=== PATIENT | female | born 1990 | race Caucasian/White ===

== ENCOUNTER → 2021-02-25 14:40 | Outpatient (CLI) | payer OTHER, SELFPAY ==
--- NOTE | 2021-02-25 14:44 | DI.US.S_ITS ---
PROCEDURE: US OB <= 14 WEEKS FETUS INDICATIONS: DATING OUTSIDE/PRIOR DATING DATA: Last menstrual period (LMP): December 28, 2020. LMP-based estimated date of delivery (HARDIK): October 04, 2021. First dating scan (date and location): [facility]; February 25, 2021. Estimated date of delivery (HARDIK) from first dating scan: October 04, 2021. TECHNIQUE: Real-time scanning was performed of the fetus and maternal pelvic organs, with image documentation. Endovaginal scanning was also performed to better visualize the fetus and maternal ovaries. COMPARISON: None. FINDINGS: Embryo: The crown-rump length measures 1.87 cm, compatible with an 8 week, 3 day gestation. A 2.9 x 1.7 x 0.8 cm hypoechoic area is seen adjacent to the gestational sac. Heart rate: 178 Measurement variability in dating: +/- 4 weeks by LMP, +/- 7 days by mean sac diameter (use before 6 weeks gestation if crown-rump length not able to be measured), +/- 5 days by crown-rump length (up to 8 weeks 6 days gestation), +/- 7 days by crown-rump length (up to 13 weeks 6 days gestation). Maternal organs: Ovaries demonstrated echogenic focus in the left ovary, which may reflect a corpus luteum . IMPRESSION: 1. Early single intrauterine gestation with perigestational hemorrhage as detailed above. Dictated by: Vinnie Roberts M.D. on 02/25/2021 at 16:10 Approved by: Vinnie Roberts M.D. on 02/25/2021 at 16:14
[2021-02-25 15:25] LABS: Add Manual Diff / Slide Review NO; Basophils Absolute Auto 100 /uL (0-100); Basophils Percent Auto 0.4 % (0-2); Eosinophils Absolute Auto 100 /uL (0-450); Eosinophils Percent Auto 0.5 % (2-4); Hematocrit 38.9 % (36-46); Hemoglobin 13.2 g/dL (12.0-16.0); Lymphocytes Absolute Auto 3700 /uL (1100-4500); Lymphocytes Percent Auto 30.5 % (25-40); Mean Corpuscular HGB Conc 33.9 % (30-36); Mean Corpuscular Hemoglobin 29.7 PG (26-34); Mean Corpuscular Volume 87.7 fL (80-100); Monocytes Absolute Auto 800 /uL (0-900); Monocytes Percent Auto 6.4 % (3-14); Neutrophils Absolute Auto 7500 /uL (1500-7000); Neutrophils Percent Auto 62.2 % (50-75); Platelet Count 209 X10^3/uL (150-400); Red Blood Cell Count 4.43 X10^6/uL (4.0-5.2); Red Cell Distribution Width 14.4 % (11.6-14.8); White Blood Cell Count 12.1 X10^3/uL (4.5-11.0)
[2021-02-25 15:37] LABS: Appearance Urine UA CLEAR; Bilirubin Urine UA NEGATIVE (NEGATIVE); Color Urine UA YELLOW; Glucose Urine UA NEGATIVE (Negative); Ketones Urine UA NEGATIVE (NEGATIVE); Leukocyte Esterase Urine UA NEGATIVE (NEGATIVE); Nitrite Urine UA NEGATIVE (Negative); Occult Blood Urine UA NEGATIVE (Negative); Protein Urine UA NEGATIVE (Negative); Urobilinogen Urine UA 0.2 E.U./dL (0.2)
[2021-02-25 16:01] LABS: pH Urine UA 6.5 (4.5-8.0)
[2021-02-25 17:19] LABS: Hepatitis B Surface Antigen NEGATIVE s/c (NEGATIVE)
[2021-02-25 17:37] LABS: HIV 1 & 2 Ab/Ag 4th Gen Combo NEGATIVE (NEGATIVE); Hep C Virus Ab w/Reflex Quant NEGATIVE s/c (NEGATIVE)
[2021-02-26 07:44] LABS: RPR Screen Non Reactive (Non Reactive); Varicella IgG Antibody <135 index (Immune >165)
== END ==
PROVIDERS: Referring Provider Obstetrics & Gynecology; Visit Provider Obstetrics & Gynecology
DX: O46.91 Antepartum hemorrhage, unspecified, first trimester (principal); Z3A.08 8 weeks gestation of pregnancy
CPT/HCPCS: 36415; 76801; 76817; 80055; 81003; 86787; 86803; 86850; 86900; 86901; 87086; 87389

== ENCOUNTER → 2021-04-26 10:18 | Outpatient (CLI) | payer OTHER, SELFPAY ==
[2021-04-26 14:22] LABS: Urine N gonorrhoeae NOT DETECTED
[2021-04-26 14:35] LABS: Urine Chlamydia NOT DETECTED
== END ==
PROVIDERS: Visit Provider Obstetrics & Gynecology
DX: Z34.02 Encounter for supervision of normal first pregnancy, second trimester (principal); Z3A.17 17 weeks gestation of pregnancy
CPT/HCPCS: 87491; 87591

== ENCOUNTER → 2021-04-26 10:55 | Outpatient (CLI) | payer OTHER, SELFPAY ==
[2021-04-29 21:01] LABS: AFP, Serum 48.8 ng/mL (.); Estriol, Free 1.49 ng/mL (.); Inhibin A, Dimeric 95.69 pg/mL (.); Inhibin A, MoM 0.59 (.); Maternal Ethnicity Caucasian (.); Maternal Weight 143 lbs (.); Number of Fetuses No (.); OSBR Risk 1 IN 5926 (.); Results Report (.); Test Results *Screen Negative* (.); hCG, MoM 0.78 (.); hCG, Serum 27478 mIU/mL (.)
== END ==
PROVIDERS: Referring Provider Obstetrics & Gynecology; Visit Provider Obstetrics & Gynecology
DX: Z34.02 Encounter for supervision of normal first pregnancy, second trimester (principal); Z3A.17 17 weeks gestation of pregnancy
CPT/HCPCS: 36415; 82105; 82677; 84702; 86336; 87491; 87591

== ENCOUNTER → 2021-05-17 09:47 | Outpatient (CLI) | payer OTHER, SELFPAY ==
--- NOTE | 2021-05-17 09:48 | DI.US.S_ITS ---
PROCEDURE: US OB >= 14 WEEKS FETUS INDICATIONS: 20 WEEK ANATOMY SCAN OUTSIDE/PRIOR DATING DATA: Last menstrual period (LMP): 12/28/2020 LMP-based estimated date of delivery (HARDIK): 10/04/2021. First dating scan (date and location): 02/25/2021. Estimated date of delivery (HARDIK) from first dating scan: 10/04/2021. The calculations are made using the ultrasound HARDIK of 10/04/2021. TECHNIQUE: Real-time scanning was performed of the fetus, with image documentation and biometric measurements. COMPARISON: [facility], , OB <= 14 WEEKS FETUS, 02/25/2021, 15:07. FINDINGS: General: A single living intrauterine gestation is present. Presentation: Vertex. Placenta: Placental position is anterior , without previa. Amniotic fluid index: 16 cm, normal range is 5-24 cm. Largest pocket 3.5 cm. heart rate: 158 beats per minute. Maternal cervical canal: 4.5 cm cm long. Normal lower limit is 2.5 cm. biometrics: Biparietal diameter: 4.6 cm, 19 weeks 6 days Head circumference: 17 cm, 19 weeks 4 days Abdominal circumference: 14.5 cm, 19 weeks 6 days Femur length: 3.1 cm, 19 weeks 4 days Clinically estimated gestational age: 20 weeks Composite gestational age from present scan: 19 weeks 5 days Estimated weight and percentile: 309 g; 30th percentile Anatomic survey: Neuro: Ventricles are non-dilated at less than 10 mm. Cisterna magna is normal at 3-11 mm. Cerebellum is normal in size and morphology. Nuchal skin fold: Normal at less than 6 mm between 14-21 weeks gestational age. Face: Nose and lips, facial profile are normal. Spine: No evidence for spina bifida. Heart: 4-chambered heart is present, with normal ventricular outflow tracts. Diaphragm: Diaphragm is intact. Stomach: Left-sided stomach is present. Kidneys: No hydronephrosis. Normal is less than 5 mm in 2nd trimester, less than 7 mm in 3rd trimester. Cord: 3-vessel cord has orthotopic insertion. Bladder: Normal in size. Extremities: All 4 extremities identified. IMPRESSION: 1. [place] living intrauterine at 19 weeks 5 days based on today's ultrasound. This is concordant with the prior ultrasound. There is expected interval growth. Fetus is in the 30th percentile for weight. 2. Normal placenta and amniotic fluid. 3. Normal and complete anatomic survey. We strive to produce accurate, complete, and clear reports of imaging services. To assist us in improving patient care, this report was composed using standard report templates and voice recognition software. Therefore, it may contain abnormal punctuation, insertions and/or omissions. Occasional wrong-word or sound-alike substitutions may occur. Though we review the report and make efforts to correct it, we do recommend that the report be read carefully in proper context to recognize any text inaccuracies. Dictated by: Killian CONLEY Interpreted: Jesus Sarah MD on 05/17/2021 at 10:58 Approved by: Jesus Sarah M.D. on 05/17/2021 at 11:33
== END ==
PROVIDERS: Referring Provider Obstetrics & Gynecology; Visit Provider Obstetrics & Gynecology
DX: Z34.02 Encounter for supervision of normal first pregnancy, second trimester (principal); Z3A.19 19 weeks gestation of pregnancy
CPT/HCPCS: 76811

== ENCOUNTER → 2021-07-19 16:35 | Outpatient (CLI) | payer OTHER, SELFPAY ==
[2021-07-19 17:53] LABS: Hematocrit 37.4 % (36-46); Hemoglobin 12.9 g/dL (12.0-16.0)
[2021-07-19 18:11] LABS: GTT (PREG) 1 Hour PP 50gm Dose 136 mg/dL (76-139)
== END ==
PROVIDERS: Referring Provider Obstetrics & Gynecology; Visit Provider Obstetrics & Gynecology
DX: Z34.02 Encounter for supervision of normal first pregnancy, second trimester (principal); Z3A.21 21 weeks gestation of pregnancy
CPT/HCPCS: 36415; 82950; 85014; 85018

== ENCOUNTER → 2021-09-13 17:28 | Outpatient (CLI) | payer OTHER, SELFPAY ==
[2021-09-14 15:23] LABS: Strep Grp B PCR POS for Grp B Strep
== END ==
PROVIDERS: Visit Provider Obstetrics & Gynecology
DX: Z34.03 Encounter for supervision of normal first pregnancy, third trimester (principal); Z3A.37 37 weeks gestation of pregnancy
CPT/HCPCS: 87653

== ENCOUNTER 2021-10-08 10:09 | Outpatient (CLI) | payer OTHER, SELFPAY ==
--- NOTE | 2021-10-08 11:23 | P.TNLD_ITS ---
Visit Information Visit Information Date of evaluation: 10/08/21 Primary OB Provider: Delonte Michele Reason for Evaluation: Yes non-stress test Comments/Additional reasons for admission: Post-dates, 40+4 weeks EGA [facility] Medical History (Updated 10/06/21 @ 08:24 by Delonte Michele MD) Bilateral low back pain with left-sided sciatica COVID-19 (~12/25/20) Fracture of left knee region (~2012) Lumbar region somatic dysfunction Pelvic somatic dysfunction Sacral region somatic dysfunction Segmental and somatic dysfunction of abdomen and other regions Surgical History (Updated 02/27/21 @ 15:13 by Kamryn Astudillo RN) History of removal of skin mole (~2014) [place] teeth extracted (~10/2020) Family History (Updated 02/27/21 @ 15:18 by Kamryn Astudillo RN) Mother No problems noted. Father No problems noted. Grandmother Hypertension Grandfather Hyperlipidemia History of quadruple bypass Grandmother Family history unknown Grandfather Family history unknown Social History marital status: number of children: 0 household members: spouse lives independently: Yes caregiver/support person: No housing: condominium pets and animals: No education level: college occupational status: employed current occupational exposures/hazards: No parvin/oriental orthodox: Sikh special parvin needs: No seatbelt use: always do you feel safe at home: Yes Smoking Status: Former smoker second hand exposure: No alcohol intake: never substance use type: does not use during the past year weight has: remained stable well-balanced diet: daily or most days daily servings fruits/ve-4 caffeine: Yes (1 cup daily. ) Type(s) of exercise: walking and normal ROM and activity frequency: 3-4 times per week duration: 30-45 minutes/day Evaluation Evaluation Baseline heart rate: 135 Variability: Average (6-10) monitor accelerations: Present Monitor Decelerations: Absent Contraction Frequency (minutes): 4 Uterine Contraction Intensity: Mild Category of Tracing: Reactive Status: Category l station: -3 (OOP by Alan's maneuver) Diagnosis, Plan/Disposition Final Diagnosis (1) Post-dates : Status: Acute (2) GBS (group B Streptococcus carrier), +RV culture, currently : Status: Acute (3) : Status: Acute Plan/Disposition Plan: Will continue twice weekly testing with NST and her next MICAELA appointment is currently scheduled for 10/11/2021. Induction tentatively scheduled for the evening of 10/16/2021 with plans for cervical ripening at that time and initiation of Pitocin augmentation on the morning of 10/17/2021. Labor precautions reviewed. OB Disposition: home
== END 2021-10-08 11:24 | disposition home or self-care (01) ==
LOC: LABOR 11:24 → OB 10-09 14:28
PROVIDERS: Referring Provider Obstetrics & Gynecology; Visit Provider Obstetrics & Gynecology
DX: O48.0 Post-term pregnancy (principal); Z3A.40 40 weeks gestation of pregnancy; O99.820 Streptococcus B carrier state complicating pregnancy
CPT/HCPCS: 59025; G0378; G0379

== ENCOUNTER 2021-10-15 07:47 | Inpatient (IN) | payer OTHER, SELFPAY ==
--- NOTE | 2021-10-15 08:40 | P.HPOB_ITS ---
OB HPI Date/Time Date of admission: 10/15/21 Date Patient Seen: 10/15/21 Time Patient Seen: 08:40 History of Present Condition Chief complaint: LABOR : 1 Para: 0 Estimated Date of Delivery: 10/04/21 Estimated Gestational Age (weeks): 41+4 Narrative: Mana Patiño is a 31 year old HARDIK 10/04/2021 admitted now at 41+4 weeks EGA w/ SROM at 2300 last evening. PNC generally uncomplicated w/ her most recent EFW 2 weeks ago 8#5oz by US. GBS is positive. History of Present care: good care Dating criteria: LMP confirmed by 1st trimester US Ultrasounds: normal 1st trimester US and normal mid trimester US Obstetrical complications: none Medical complications: none Preadmission Labs Blood type: A (+) positive -: Antibody screen: negative, GBS status: positive, HBsAG: negative, HIV: negative and RPR/VDLR: negative -: Chlamydia screen: not detected and Gonorrhea screen: not detected -: Rubella: not immune and Varicella: not immune HCT: 39.6 HCAB: negative PAP: Normal Quad screen: Normal 1 hr GTT: 136 Prior (ies) History: Primigravida Evaluation Evaluation Baseline heart rate: 135 Variability: Average (6-10) monitor accelerations: Present Monitor Decelerations: Episodic and Variable (Mild occasional variables) Contraction Frequency (minutes): 4 Uterine Contraction Intensity: Moderate Category of Tracing: Reactive Status: Category l Dilation (cm): 2 Effacement (%): 75 Dilation: 1-2 cm Effacement: 60-70% station: -2 Position of cervix: mid Consistency: medium Yepez score: 6 Non-invasive Membranes Rupture Test: positive [facility] Medical History (Updated 10/06/21 @ 08:24 by Delonte Michele MD) Bilateral low back pain with left-sided sciatica COVID-19 (~12/25/20) Fracture of left knee region (~2012) Lumbar region somatic dysfunction Pelvic somatic dysfunction Sacral region somatic dysfunction Segmental and somatic dysfunction of abdomen and other regions Surgical History (Updated 02/27/21 @ 15:13 by Kamryn Astudillo RN) History of removal of skin mole (~2014) [place] teeth extracted (~10/2020) Family History (Updated 02/27/21 @ 15:18 by Kamryn Astudillo RN) Mother No problems noted. Father No problems noted. Grandmother Hypertension Grandfather Hyperlipidemia History of quadruple bypass Grandmother Family history unknown Grandfather Family history unknown Social History marital status: number of children: 0 household members: spouse lives independently: Yes caregiver/support person: No housing: condominium pets and animals: No education level: college occupational status: employed current occupational exposures/hazards: No parvin/mormonism: Rastafarian special parvin needs: No seatbelt use: always do you feel safe at home: Yes Smoking Status: Never smoker second hand exposure: No alcohol intake: never substance use type: does not use during the past year weight has: remained stable well-balanced diet: daily or most days daily servings fruits/ve-4 caffeine: Yes (1 cup daily. ) Type(s) of exercise: walking and normal ROM and activity frequency: 3-4 times per week duration: 30-45 minutes/day Meds Home Medications and Allergies Home Medications Medication Instructions Recorded Confirmed Type prenat.vits,caron,[id number] 1 tab PO DAILY 02/27/21 10/15/21 History Allergies Allergy/AdvReac Type Severity Reaction Status Date / Time No Known Drug Allergies Allergy Verified 09/13/21 15:48 Review of Systems Review of Systems Narrative: Problem-specific ROS positives included in HPI OB Exam HENMT Head: normal to inspection, normocephalic and atraumatic Eyes General: appearance normal, both eyes and all related structures Resp Effort & Inspection: normal respiratory effort and able to speak in complete sentences Auscultation: clear to auscultation bilaterally Cardio Rate: regular rate Rhythm: regular rhythm Heart Sounds: S1 normal, S2 normal and no murmurs Extremities Lower extremity: Yes normal to inspection GI Inspection: normal to inspection Palpation: Yes soft and Yes no hepatosplenomegaly Uterus Location (Fundal Height): 39 Presentation: vertex Estimated Weight (lbs): 9 Amniotic Fluid: clear Objective Labs Result Diagrams: 10/15/21 08:45 Assessment and Plan Assessment and Plan Assessment and Plan narrative: ASSESSMENT 1. Intrauterine gestation, 41+4 weeks EGA 2. SROM 2300 10/14/2021 3. + GBS carrier PLAN 1. Admit for delivery 2. GBS AB prophylaxis w/ PCN 3. Augment labor as needed 4. OK for JONNA 5. Anticipate but infant is LGA and high at presentation therefore observe carefully for dystocia 6. See orders
[2021-10-15] MEDS: LACTATED RINGERS 1,000 ML 100 ML IV ×4 (09:04→18:18)
[2021-10-15] MEDS: PENICILLIN G POTASSIUM 5,000,000 UNIT in DEXTROSE 5% IN WATER 250 ML 250 UNIT IV (09:04)
[2021-10-15 09:06] LABS: Add Manual Diff / Slide Review NO; Basophils Absolute Auto 100 /uL (0-100); Basophils Percent Auto 0.6 % (0-2); Eosinophils Absolute Auto 0 /uL (0-450); Eosinophils Percent Auto 0.1 % (2-4); Hematocrit 39.6 % (36-46); Hemoglobin 13.7 g/dL (12.0-16.0); Lymphocytes Absolute Auto 2100 /uL (1100-4500); Lymphocytes Percent Auto 11.2 % (25-40); Mean Corpuscular HGB Conc 34.6 % (30-36); Mean Corpuscular Hemoglobin 32.7 PG (26-34); Mean Corpuscular Volume 94.4 fL (80-100); Monocytes Absolute Auto 1000 /uL (0-900); Monocytes Percent Auto 5.5 % (3-14); Neutrophils Absolute Auto 15500 /uL (1500-7000); Neutrophils Percent Auto 82.6 % (50-75); Platelet Count 157 X10^3/uL (150-400); White Blood Cell Count 18.8 X10^3/uL (4.5-11.0)
[2021-10-15] MEDS: FENT 2MCG/ML BUPIV 0.125% EPI 200 MCG/100 ML PLAST..BAG 8 MCG EPIDURAL (09:16)
[2021-10-15 09:44] LABS: COVID19 -Nasal RAPID Negative (Negative)
[2021-10-15] MEDS: OXYTOCIN PREMIX 30 UNIT/500 ML PLAST..BAG IV (10:51)
[2021-10-15] MEDS: PENICILLIN G POTASSIUM 3,000,000 UNIT/50 ML FROZ.PIGGY 100 UNIT IV ×2 (12:49→16:46)
--- NOTE | 2021-10-15 17:17 | PM.OBPNLAB ---
Date/Time Date Patient Seen: 10/15/21 Time Patient Seen: 17:18 Pain Control Pain control: tolerating well Pelvic Exam Dilation (cm): 5 Effacement (%): 75 station: -2 Amniotic membrane status: Ruptured Contractions Contractions on admission: irregular Monitor mode: External Pitocin rate (mU/min): 2 Contraction frequency (min): 3 Contraction pattern: Regular Contraction phase: Resting Contraction intensity: Moderate Status status: Category l Heart Rate Baseline: 145 Monitor Accelerations: Present Monitor Decelerations: Early and Episodic Monitor Variability: Minimal Comments: + caput, + cervical edema, position indeterminate, + acceleration w/ scalp stimulation Assessment and Plan Assessment: induction ongoing Plan: continuous present management Comments: Patient hasn't made any significant change in dilation or descent over the past 3 hours. Pitocin off briefly earlier this afternoon due to a 5 minute bradycardia down to mid-80's associated with tachysystole. Will re-evaluate cervical exam in another two hours and if no change insert IUPC to R/O hypotonic uterine dysfunction. Patient aware of plan and potential causes of slow progress/dystocia.
--- NOTE | 2021-10-15 19:18 | PM.OBPNLAB ---
Date/Time Date Patient Seen: 10/15/21 Time Patient Seen: 19:18 Pain Control Pain control: tolerating well and epidural Pelvic Exam Dilation (cm): 5 Effacement (%): 75 station: -2 Amniotic membrane status: Ruptured Contractions Monitor mode: Internal (Inseted 190) Pitocin rate (mU/min): 0 Contraction frequency (min): 3 Contraction pattern: Regular Contraction phase: Resting Contraction intensity: Moderate Status status: Category l Heart Rate Baseline: 145 Monitor Accelerations: Present Monitor Decelerations: Episodic Monitor Variability: Moderate Comments: 5 minute decel from 145 down to 85 resolved w/ position change, O2, fluid bolus. Cervix remains unchanged. IUPC inserted to assess MVU. Bedside US, is OT. Assessment and Plan Assessment: induction ongoing Plan: continuous present management Comments: Will assess uterine contraction activity and recheck at 2030 to assess progress.
--- NOTE | 2021-10-15 20:41 | PM.OBPNLAB ---
Date/Time Date Patient Seen: 10/15/21 Time Patient Seen: 20:41 Pain Control Pain control: tolerating well Pelvic Exam Dilation (cm): 5 Effacement (%): 80 station: -1 Amniotic membrane status: Ruptured Contractions Contractions on admission: irregular Monitor mode: Internal (Inseted 190) Pitocin rate (mU/min): 0 Contraction frequency (min): 3 Contraction duration (min): 1 Contraction pattern: Regular Contraction phase: Resting Contraction intensity: Moderate Intrauterine tone measurement: 165 (MVU) Status status: Category l Heart Rate Baseline: 150 Monitor Accelerations: Present Monitor Decelerations: Episodic Monitor Variability: Moderate Assessment and Plan Plan: Comments: Discussed the fact that she hasn't progressed insofar as dilation and/or descent for at least 6 hours beyond current exam of 5 cm/80-%/-1-2 despite adequate uterine contraction activity limited by episodes of bradycardia requiring temporary discontinuation of Pitocin with Mana and Fabio. After a discussion of alternatives with attendant risks, benefits, and potential complications, they've opted to proceed with primary section due to failure to progress due to CPD. With full knowledge of the above, a written consent was executed, signed, and witnessed this date.
--- NOTE | 2021-10-15 20:54 | PM.PREOP ---
Pre-operative Note COVID-19 COVID-19 status: Negative Result date/Date tested (Pos, Neg/Pending): 10/15/21 Criteria for continued procedure: Non-surgical alternatives not available or appropriate per current SOC Interval Note History & Physical reviewed/Exam performed by Physician: Yes Changes to H&P: No
[2021-10-15] MEDS: CITRIC ACID/SODIUM CITRATE 15 ML SOLUTION 30 ML PO (21:26)
--- NOTE | 2021-10-15 21:30 | P.OP_ITS ---
Operative Date/Time/Diagnoses Date of procedure: 10/15/21 Time of procedure: 21:50 Pre-op diagnosis: Failure to progress due to cephalopelvic dysproportion (CPD) Post-op diagnosis: same Procedure & Clinicians Procedure: Primary cesrean Section (Low transverse cervical) Same procedure as scheduled: Yes Indications: Mana is a 31 yo at 41+4 weeks EGA admitted early on the morning of 10/15/2021 with contractions following SROM @ 2300 on the evening of 10/14/2021. She received an epidural and progressed well to 80%/5/-1-2 where she has rem ained for > 6 hrs. despite adequate contractions documented by IUPC. After consideration of all options patient and her spouse have decided to proceed with primary section for failiure to progress due to CPD. Surgeon: Delonte Michele Greeter Guest Services: Nelia Shepherd Reason for Greeter Guest Services: Retraction and the safe, effective, and timely performance of this complex surgical procedure. Anesthesia Type: Epidural Operative Notes Findings: Viable male BW 3663 gms (8# 1.2 oz), Apgars 9/9, delivered from the vertex presentation with marked caput and moulding. Normal gravid anatomy. Closure Type: primary Specimen(s): cord blood Intraoperative meds administered: Acetaminophen, Duramorph, Ketorolac and Pitocin Applied: Catheter Estimated Blood Loss (mL): 650 Blood products transfused: none Procedure in detail: With her informed written consent, the patient was taken to the operating room and placed in the supine position for a primary section procedure, for the indication(s) above. The abdomen was prepped and draped in the usual manner for section and a pre-surgical timeout was taken per [facility] OR protocol. Once effective anesthesia was confirmed, a 15 cm transverse Pf annenstiel incision was made in the skin and taken down through the subcutaneous tissues to the deep fascia. The deep fascia was incised transversely, the rectus abdominal eyes bluntly and sharply, and the peritoneal cavity entered without difficulty. The lower uterine segment was visualized and the position/presentation palpated. A transverse incision at or above the vesicouterine reflection was made with Metzenbaum scissors and transverse hysterotomy performed near the midline. Amniotomy revealed clear fluid. The incision was extended bilaterally with digital traction and the infant was delivered without difficulty from the vertex presentation. The infant was vigorous and cord clamping delayed for 60 seconds. The placenta was delivered intact using gentle cord traction and fundal massage.The uterine cavity was then cleared of any clot/debris first with a sloppy wet lap tape followed by a dry lap tape. Ring forceps were then applied to the angles and the midline of the incised BOZENA. A primary closure of the uterus was then accomplished with #1 CCGS in a running interlocking stitch followed by a 2nd layer of #1 CCGS in a running interlocking imbricating stitch. One additional figure of eight suture was required to achieve complete hemostasis. An ascending uterine artery suture was required on the left side to render the angle hemostatic. Once pelvic hemosta sis was assured, the anterior peritoneum was closed with a running 2-0 Vicryl suture and the fascia closed with #1 Vicryl in a running stitch initiated at both angles and tying separately near the midline. The subcutaneous tissues were reapproximated with 2-0 plain catgut suture using inverted interrupted stitches. The skin edges were then brought together with 4-0 Monocryl in a subcuticular closure and the incision was reinforced with half-inch Steri- Strips. An appropriate compression dressing was applied and the patient transferred to PACU for recovery and subsequent transfer to the Center for recuperation. Complications: none [place] Baby 1: Infant Gender: Male Presentation: vertex Position: Left Occiput Transverse Placental Delivery Description: Spontaneous and Expressed Cord Vessel Description: 3 Vessels score (1 min): 9 score (5 min): 9 weight: 8 lb 1.209 oz Post-operative Condition: stable Disposition: PACU Aftercare: routine postop
[2021-10-15] MEDS: CEFAZOLIN 2 GM/20 ML SYRINGE IV (21:32)
[2021-10-15] MEDS: AZITHROMYCIN 500 MG in DEXTROSE 5% IN WATER 250 ML 250 MG IV (21:35)
--- NOTE | 2021-10-15 21:51 | SUR.OPER ---
Supine on Padded OR bed, head on pillow, safety belt at thigh, arms secured on padded arm boards at <90 degrees abduction. Bump under right buttock. Legs uncrossed with pillow under knees, gel pad to heels, tape over blanket to lower legs.
--- NOTE | 2021-10-15 22:09 | SUR.OPER ---
viable baby boy born at 2158, placenta delivered at 2201, cord blood and placenta given to OB RN, at 9/9
[2021-10-15 22:57] VITALS: BP 102/62; PULSE 83; RESP 15; O2SAT 99
[2021-10-16] MEDS: LACTATED RINGERS 1,000 ML 100 ML IV (00:34)
[2021-10-16] MEDS: KETOROLAC 30 MG/ML VIAL IV (04:42)
[2021-10-16 05:10] LABS: Add Manual Diff / Slide Review NO; Basophils Absolute Auto 0 /uL (0-100); Basophils Percent Auto 0.1 % (0-2); Eosinophils Absolute Auto 0 /uL (0-450); Hematocrit 33.1 % (36-46); Hemoglobin 11.6 g/dL (12.0-16.0); Lymphocytes Absolute Auto 1500 /uL (1100-4500); Lymphocytes Percent Auto 6.4 % (25-40); Mean Corpuscular Hemoglobin 33.2 PG (26-34); Mean Corpuscular Volume 94.7 fL (80-100); Monocytes Absolute Auto 1400 /uL (0-900); Monocytes Percent Auto 5.9 % (3-14); Neutrophils Absolute Auto 20600 /uL (1500-7000); Neutrophils Percent Auto 87.6 % (50-75); Platelet Count 138 X10^3/uL (150-400); Red Blood Cell Count 3.49 X10^6/uL (4.0-5.2); Red Cell Distribution Width 13.8 % (11.6-14.8); White Blood Cell Count 23.5 X10^3/uL (4.5-11.0)
--- NOTE | 2021-10-16 07:36 | PM.OBPN.1 ---
Subjective - OB Subjective Patient comments: no complaints [place] baby status: doing well [place] feeding status: exclusively breast feeding Narrative: POD#1: Patient doing well overnight. Patient has started passing gas. Limited ambulation thus far. Pain well controlled and lochia minimal. Denies nausea and vomiting Date Patient Seen: 10/16/21 Time Patient Seen: 07:36 Exam Vital Signs (past 8 hours): Oxygen Delivery Method Room Air Narrative Exam Narrative: Temp = 98.8 Const General: cooperative and comfortable Nutritional Appearance: average body habitus Orientation: alert and oriented x3 HENMT Head: normal to inspection, atraumatic and abrasion Ears: hearing grossly normal bilaterally Face and sinus: face symmetric Eyes General: appearance normal, both eyes and all related structures Conjunctivae: conjunctivae normal Sclera: sclerae normal EOM: EOM intact bilaterally Neck Neck: normal visual inspection Resp Effort & Inspection: normal respiratory effort and able to speak in complete sentences Auscultation: clear to auscultation bilaterally Cardio Rate: regular rate Rhythm: regular rhythm Heart Sounds: S1 normal, S2 normal and no murmurs GI Inspection: normal to inspection and incision (Surgical dressing clean and dry) Palpation: soft, no hepatosplenomegaly and tender (Mild, diffuse postsurgical tenderness) Auscultation: hypoactive bowel sounds External Female Exam: other (No significant bleeding noted) Extrem General: no calf tenderness Psych Appearance: grossly normal Mental Status: mental status grossly normal Speech and Movement: speech and movement normal Mood: congruent mood Affect: normal affect Attitude: cooperative Thought Process: normal Thought Content: normal Judgment: judgment good Objective Labs Result Diagrams: 10/16/21 04:47 Labs: Laboratory Results - last 24 hr 10/15/21 10/15/21 10/15/21 08:45 08:45 08:45 WBC 18.8 H RBC 4.20 Hgb 13.7 Hct 39.6 MCV 94.4 MCH 32.7 MCHC 34.6 RDW 14.0 Plt Count 157 Neut % (Auto) 82.6 H Lymph % (Auto) 11.2 L [place] % (Auto) 5.5 Eos % (Auto) 0.1 L Baso % (Auto) 0.6 Neut # (Auto) 87810 H Lymph # (Auto) 2100 [place] # (Auto) 1000 H Eos # (Auto) 0 Baso # (Auto) 100 SARS-CoV-2 (PCR) Negative Blood Type A Positive Antibody Screen Negative 10/16/21 04:47 WBC 23.5 H RBC 3.49 L Hgb 11.6 L Hct 33.1 L MCV 94.7 MCH 33.2 MCHC 35.0 RDW 13.8 Plt Count 138 L Neut % (Auto) 87.6 H Lymph % (Auto) 6.4 L [place] % (Auto) 5.9 Eos % (Auto) 0.0 L Baso % (Auto) 0.1 Neut # (Auto) 60485 H Lymph # (Auto) 1500 [place] # (Auto) 1400 H Eos # (Auto) 0 Baso # (Auto) 0 SARS-CoV-2 (PCR) Blood Type Antibody Screen Assessment & Plan Plan day: 1 plan OB: routine postop care Comments: Anticipate probable discharge in a.m. Time Spent With Patient Time: Total time spent is greater than 50% in coordination of care (as documented) at patient's floor/unit and/or counseling patient: Time with patient: 15-24 minutes
[2021-10-16 07:39] VITALS: BP 100/67; PULSE 78; RESP 16; TEMP 36.4
[2021-10-16] MEDS: ACETAMINOPHEN 325 MG TABLET 650 MG PO ×3 (07:44→22:02)
[2021-10-16] MEDS: LANOLIN OINT 7 GM 1 APPLIC TOP (07:46)
[2021-10-16 07:48] VITALS: BP 101/63
[2021-10-16] MEDS: DOCUSATE 100 MG CAPSULE 200 MG PO (10:28)
[2021-10-16] MEDS: IBUPROFEN 600 MG TABLET PO ×3 (10:28→22:03)
[2021-10-17] MEDS: ACETAMINOPHEN 325 MG TABLET 650 MG PO ×2 (05:27→11:32)
[2021-10-17] MEDS: IBUPROFEN 600 MG TABLET PO ×2 (05:27→11:31)
[2021-10-17 06:11] LABS: Add Manual Diff / Slide Review NO; Basophils Absolute Auto 0 /uL (0-100); Basophils Percent Auto 0.3 % (0-2); Eosinophils Absolute Auto 100 /uL (0-450); Eosinophils Percent Auto 0.6 % (2-4); Hematocrit 31.5 % (36-46); Hemoglobin 10.8 g/dL (12.0-16.0); Lymphocytes Absolute Auto 2800 /uL (1100-4500); Lymphocytes Percent Auto 19.2 % (25-40); Mean Corpuscular HGB Conc 34.4 % (30-36); Mean Corpuscular Hemoglobin 32.8 PG (26-34); Mean Corpuscular Volume 95.3 fL (80-100); Monocytes Absolute Auto 800 /uL (0-900); Monocytes Percent Auto 5.7 % (3-14); Neutrophils Absolute Auto 11000 /uL (1500-7000); Neutrophils Percent Auto 74.2 % (50-75); Platelet Count 122 X10^3/uL (150-400); White Blood Cell Count 14.8 X10^3/uL (4.5-11.0)
--- NOTE | 2021-10-17 08:31 | P.DS_ITS ---
Discharge Providers Provider Date of admission: 10/15/21 07:47 Discharge Date: 10/17/21 Primary care physician: Doctor Sharif MD Consults: 10/15/21 08:39 Consult to Anesthesiology Urgent Comment: Consulting Provider: Delonte Michele Reason for consultation: JONNA placement in labor Has provider been notified: No 10/15/21 23:01 Consult to Swim Instructor Routine Comment: Discharge provider: Delonte Michele MD Summary Hospital Course Date Patient Seen: 10/17/21 Time Patient Seen: 08:32 Diagnoses: Intrauterine gestation, [place], 40 1+4 weeks gestational age, delivered Failure to progress due to cephalopelvic disproportion GBS positive status, Hospital Course: Mana was admitted on the morning of 10/15/2021 with contractions after having experienced SROM at 11:00 p.m. on the evening of 10/14/2021. She received IV penicillin for GBS prophylaxis and was augmented with Pitocin progressing to 5 cm dilation late on the morning of 10/15/2021. Despite augmentation throughout the day, the patient did not progress beyond 5 cm dilation with the cervix 80- 90% effaced and the vertex never descending below -1-2 station. After more than 6 hours for without cervical change despite adequate contractions documented with IUPC, patient on the evening of 10/15/2021 underwent a primary section by low transverse cervical incision. Details of the procedure well summarized on my operative note of that date. Following surgery the patient has done extremely well with prompt return of bowel and bladder function, she is ambulating and dependently, tolerating a regular diet, and her pain is well controlled with oral pain medications. She will be discharged at this time to home in an afebrile normotensive condition after counseling regarding precautionary symptoms, limitations of activity, medications, and plans for follow-up. Her postop visit will be scheduled for 1 week following delivery at which time she will have an incision check and removal of her AquaCel dressing. Medications at discharge will include vitamins 1 p.o. daily, ibuprofen 600 mg p.o. q.6 hours as needed pain dispense 60 with 2 refills, and docusate 200 mg p.o. q.d. dispense 30 with 2 refills. Patient is undecided at this point regarding contraception but that will be discussed at her 1 week postop checkup. Peripartum Data Delivery Method: Section Laceration Description: None Episiotomy description: None complications: none 1: Gender: Male Disposition of : home Status at Discharge Cognitive/behavioral status at discharge: oriented Functional status at discharge: independent ambulation Overall status at discharge: patient is progressing back to baseline Time Spent with Patient Time attestation: Total time spent providing and/or coordinating discharge services: Time spent: Less than 30 minutes Objective Labs Result Diagrams: 10/17/21 05:43 Labs: Laboratory Results - last 24 hr 10/17/21 05:43 WBC 14.8 H RBC 3.30 L Hgb 10.8 L Hct 31.5 L MCV 95.3 MCH 32.8 MCHC 34.4 RDW 14.0 Plt Count 122 L Neut % (Auto) 74.2 Lymph % (Auto) 19.2 L [place] % (Auto) 5.7 Eos % (Auto) 0.6 L Baso % (Auto) 0.3 Neut # (Auto) 61144 H Lymph # (Auto) 2800 [place] # (Auto) 800 Eos # (Auto) 100 Baso # (Auto) 0 Exam Vital Signs (past 8 hours): Oxygen Delivery Method Room Air Const General: cooperative and comfortable Nutritional Appearance: average body habitus Orientation: alert and oriented x3 HENMT Head: normal to inspection, atraumatic and abrasion Ears: hearing grossly normal bilaterally Face and sinus: face symmetric Eyes General: appearance normal, both eyes and all related structures Conjunctivae: conjunctivae normal Sclera: sclerae normal EOM: EOM intact bilaterally Neck Neck: normal visual inspection Resp Effort & Inspection: normal respiratory effort and able to speak in complete sentences Auscultation: clear to auscultation bilaterally Cardio Rate: regular rate Rhythm: regular rhythm Heart Sounds: S1 normal, S2 normal and no murmurs GI Inspection: normal to inspection and incision (Surgical dressing clean and dry) Palpation: soft, no hepatosplenomegaly, mass (Firm, minimally tender fundus, U - 6) and tender (Mild, diffuse postsurgical tenderness) External Female Exam: other (Minimal/moderate lochia) Extrem General: no calf tenderness Psych Appearance: grossly normal Mental Status: mental status grossly normal Speech and Movement: speech and movement normal Mood: congruent mood Affect: normal affect Attitude: cooperative Thought Process: normal Thought Content: normal Judgment: judgment good Discharge Plan Discharge Plan Patient Disposition: Home Provider Discharge Comment: Please review the written instructions he received when you were discharged from the hospital. Your follow-up appointment will be scheduled for 1 week after your delivery and I look forward to seeing you then. If in the meanwhile however you have any issues, concerns, or problems, please contact me either through the office phone at [phone] or via the patient portal. Discharge orders & Medications Prescriptions: New ibuprofen 600 mg Tablet 600 mg PO Q6HR PRN (Reason: Fever/Mild Pain (1-3)) Qty: 60 2RF docusate sodium 100 mg Capsule 200 mg PO DAILY 30 Days Qty: 30 1RF Continued prenat.vits,caron,gor-ortb-aitrh Tablet 1 tab PO DAILY Follow up/Referrals: Doctor Olguin MD [Primary Care Provider] - (Appontment with on Thursday,October at 2:45 pm for aquacel removal and November at 10:30 am for 6 week appointment.) Discharge Health Status Multidrug resistant organism: No MDRO Diet/Activity/Treatments Diet: Diet as Tolerated Activity: As tolerated Other treatments: [id number] Tylenol or ibuprofen for mild discomfort Skin/Wound/Dressing Care Report to your healthcare provider any signs of infection, such as:: chills, fever, increased pain, unusual drainage and unusual redness Dressing: Dressing will be removed at your 1 week postop checkup Visit Report/Discharge Packet Instructions: Diet, DI for Stand Alone Forms: Discharge: Care Discharge Data Primary Care Provider: Doctor Sharif
[2021-10-17] MEDS: DOCUSATE 100 MG CAPSULE 200 MG PO (11:31)
[2021-10-17] MEDS: MEASLES,MUMPS,RUBELLA VACC/PF 0.5 ML VIAL SUBCUT (11:32)
== END 2021-10-17 14:24 | disposition home or self-care (01) | DRG 788 ==
PROVIDERS: Admitting Provider Obstetrics & Gynecology; Referring Provider Obstetrics & Gynecology; Visit Provider Obstetrics & Gynecology
PROC: 10D00Z1 Extraction of Products of Conception, Low, Open Approach (ICD-10-PCS; CPT 59514; principal; 2021-10-15 21:45)
DX: O42.02 Full-term premature rupture of membranes, onset of labor within 24 hours of rupture (principal); O65.4 Obstructed labor due to fetopelvic disproportion, unspecified; Z3A.41 41 weeks gestation of pregnancy; Z37.0 Single live birth; O48.0 Post-term pregnancy; O99.824 Streptococcus B carrier state complicating childbirth; O76 Abnormality in fetal heart rate and rhythm complicating labor and delivery; Z20.822 Contact with and (suspected) exposure to COVID-19
CPT/HCPCS: 01967; 01968; 36415; 59050; 59510; 59514; 76815; 85025; 86850; 86900; 86901; 87635; C9803; G0379; J0690; J1885; J2250; J2274; J2405; J2540; J2590